=== PATIENT | male | born 1960 | race Caucasian/White ===

== ENCOUNTER 2020-10-16 09:05 | Observation (INO) | payer OTHER ==
[~2020-10-16] VITALS: Ht 177.8 cm; Wt 111.5 kg
--- NOTE | 2020-10-16 09:48 | ED Cardiac General ---
History of Present Illness General Chief Complaint: Chest Pain Stated Complaint: HIGH BP,CP, Nursing Triage Note: PT AMB TO RM 3 WITH COMPLAINT OF HTN, LEFT SIDE FACIAL NUMBNESS, AND CHEST PRESSURE. STATES STARTED AROUND 0600 THIS MORNING WHEN HE WOKE UP. STATES BP AT HOME WAS IN THE 220s. Source: patient Exam Limitations: no limitations NPO since: 6:30AM (JESSICA MATTSON STUDENT) History of Present Illness Date Seen by Provider: Oct 16, 2020 Time Seen by Provider: 09:20 Initial Comments Pt presents to ED via private conveyance with complaints of chest pain, L side facial numbness, SOB, high blood pressure. He states that this morning he woke up at around 6AM and was experiencing some SOB, chest pressure mid-upper sternum, denies radiation, rates it 6/10, denies prior similar symptoms. He also reports blurry vision bilaterally that he says has been improving since his symptoms began. He also had nausea and new onset R sided headache and L facial numbness. He had a stress test 2 years ago that he reports showed no evidence of ischemia, but was told about a stenotic valve. He reports history of HTN and recently changed medication from Lisinopril to Losartan. He has been having some nausea w/o vomiting. Last ate/drank 2 cups of coffee this morning when he woke up. Timing/Duration: 4-6 hours Severity: moderate Location: substernal (mid-upper sternum) Activities at Onset: sleep Prior CP/Workup: non-cardiac (he reports having reflux beginning about 1yr ago, does not take medication) Modifying Factors: improves with other (denies taking medication, denies alleviating/aggravating factors) NTG SL DATA INTEGRATION ARCHITECT: No ASA po DATA INTEGRATION ARCHITECT: No Associated Systoms: Chest Pain; No Fever/Chills; Headaches; No Loss of Appetite, No Malaise; Nausea/Vomiting (nausea w/o vomiting), Shortness of Air (JESSICA MATTSON STUDENT) Allergies and Home Medications Allergies Coded Allergies: No Known Drug Allergies (Unverified , 10/16/20) Home Medications Losartan/Hydrochlorothiazide 1 Each Tablet, 1 EACH PO DAILY, (Reported) Last Action: New Order Patient Home Medication List Home Medication List Reviewed: Yes (JESSICA MATTSON STUDENT) Review of Systems Review of Systems Constitutional: No chills, No dizziness, No fever EENTM: Blurred Vision (reports blurry vision this morning but improving since arrival) Respiratory: Denies Cough; Shortness of Air Cardiovascular: Chest Pain (substernal mid-upper sternum); Denies Edema, Denies Lightheadedness Gastrointestinal: Denies Abdomen Distended, Denies Abdominal Pain, Denies Constipated, Denies Diarrhea; Nausea; Denies Vomiting Genitourinary: Denies Burning, Denies Flank Pain, Denies Hematuria Musculoskeletal: back pain (chronic neck/back pain) Skin: No change in color, No change in hair/nails Psychiatric/Neurological: Headache (R sided 6/10), Numbness (mild loss of sensation L forehead); Denies Paresthesia (JESSICA MATTSON) All Other Systems Reviewed Negative Unless Noted: Yes (JESSICA MATTSON) Past Iagjqcc-Rbsbfr-Ssuhks Hx Patient Social History Tobacco Use?: Yes Tobacco type used: Cigarettes Smoking Status: Current Someday Smoker Smokeless Tobacco Frequency: Current Someday User Substance use?: No Alcohol Use?: Yes Alcohol Frequency: Once in a while Pt feels they are or have been: No (JESSICA MATTSON) Physical Exam Vital Signs Vital Signs - First Documented 10/16/20 09:10 Pulse 98 Resp 16 B/P (MAP) 225/126 (159) Pulse Ox 98 O2 Delivery Room Air (LEONARDO PARKS) Vital Signs Capillary Refill : Less Than 3 Seconds (JESSICA MATTSON) Height, Weight, BMI Height: '" Weight: lbs. oz. kg; 35.00 BMI Method: General Appearance: No Apparent Distress, WD/WN HEENT: PERRL/EOMI, TMs Normal, Pharynx Normal Neck: Full Range of Motion, Normal Inspection, Non Tender, Supple Respiratory: Chest Non Tender, Lungs Clear, Normal Breath Sounds, No Accessory Muscle Use, No Respiratory Distress Cardiovascular: Regular Rate, Rhythm, No Edema, Normal Peripheral Pulses, Systolic Murmur Gastrointestinal: Normal Bowel Sounds, Non Tender, Soft Rectal: Deferred Extremity: Normal Capillary Refill, Normal Inspection, Normal Range of Motion, Non Tender, No Pedal Edema Neurologic/Psychiatric: Alert, Oriented x3, Normal Mood/Affect, plastic molding operator II-XII Norm as Tested Skin: Normal Color, Warm/Dry Lymphatic: No Adenopathy (SRINIVASAN,JESSICA MED STUDENT) Progress/Results/Core Measures Results/Orders Lab Results Laboratory Tests Test 10/16/20 09:22 Range/Units White Blood Count 8.3 4.3-11.0 10^3/uL Red Blood Count 4.95 4.30-5.52 10^6/uL Hemoglobin 15.6 13.3-17.7 g/dL Hematocrit 48 40-54 % Mean Corpuscular Volume 96 80-99 fL Mean Corpuscular Hemoglobin 32 25-34 pg Mean Corpuscular Hemoglobin Concent 33 32-36 g/dL Red Cell Distribution Width 12.9 10.0-14.5 % Platelet Count 173 130-400 10^3/uL Mean Platelet Volume 11.0 9.0-12.2 fL Immature Granulocyte % (Auto) 0 % Neutrophils (%) (Auto) 66 42-75 % Lymphocytes (%) (Auto) 25 12-44 % Monocytes (%) (Auto) 7 0-12 % Eosinophils (%) (Auto) 1 0-10 % Basophils (%) (Auto) 1 0-10 % Neutrophils # (Auto) 5.5 1.8-7.8 10^3/uL Lymphocytes # (Auto) 2.1 1.0-4.0 10^3/uL Monocytes # (Auto) 0.6 0.0-1.0 10^3/uL Eosinophils # (Auto) 0.1 0.0-0.3 10^3/uL Basophils # (Auto) 0.0 0.0-0.1 10^3/uL Immature Granulocyte # (Auto) 0.0 0.0-0.1 10^3/uL Prothrombin Time 13.2 12.2-14.7 SEC INR Comment 1.0 0.8-1.4 Activated Partial Thromboplast Time 28 24-35 SEC Sodium Level 139 135-145 MMOL/L Potassium Level 4.0 3.6-5.0 MMOL/L Chloride Level 103 98-107 MMOL/L Carbon Dioxide Level 25 21-32 MMOL/L Anion Gap 11 5-14 MMOL/L Blood Urea Nitrogen 16 7-18 MG/DL Creatinine 1.12 0.60-1.30 MG/DL Estimat Glomerular Filtration Rate 67 BUN/Creatinine Ratio 14 Glucose Level 100 70-105 MG/DL Calcium Level 9.1 8.5-10.1 MG/DL Corrected Calcium 8.9 8.5-10.1 MG/DL Magnesium Level 2.1 1.6-2.4 MG/DL Total Bilirubin 0.8 0.1-1.0 MG/DL Aspartate Amino Transf (AST/SGOT) 21 5-34 U/L Alanine Aminotransferase (ALT/SGPT) 22 0-55 U/L Alkaline Phosphatase 69 40-136 U/L Myoglobin 64.2 10.0-92.0 NG/ML Troponin I < 0.028 <0.028 NG/ML Total Protein 7.8 6.4-8.2 GM/DL Albumin 4.3 3.2-4.5 GM/DL (LEONARDO PARKS) My Orders Orders - LEONARDO PARKS Continuous Ekg Monitoring (10/16/20 09:13) Ekg Tracing (10/16/20 09:13) Cbc With Automated Diff (10/16/20 09:54) Magnesium (10/16/20 09:54) Chest 1 View, Ap/Pa Only (10/16/20 09:54) Comprehensive Metabolic Panel (10/16/20 09:54) Myoglobin Serum (10/16/20 09:54) Protime With Inr (10/16/20 09:54) Partial Thromboplastin Time (10/16/20 09:54) O2 (10/16/20 09:54) Lipid Panel (10/17/20 06:00) Ed Iv/Invasive Line Start (10/16/20 09:54) Troponin I (10/16/20 09:54) Aspirin Chewable Tablet (Baby Aspirin Ch (10/16/20 10:00) Ct Head Wo-R/O Stroke (10/16/20 09:54) Nitroglycerin 0.4 Mg Btl 25's (Nitrostat (10/16/20 13:30) (LEONARDO PARKS) Medications Given in ED Current Medications Medications Dose Ordered Sig/Vin Route Start Time Stop Time Status Last Admin Dose Admin Aspirin 324 mg ONCE ONCE PO 10/16/20 10:00 10/16/20 10:01 DC 10/16/20 10:00 324 MG Nitroglycerin 0.4 mg NEEDED PRN SL 10/16/20 13:30 10/16/20 16:19 DC 10/16/20 13:35 0.4 MG (LEONARDO PARKS) Vital Signs/I&O 10/16/20 10/16/20 09:10 09:10 Pulse 98 Resp 16 B/P (MAP) 225/126 (159) Pulse Ox 98 O2 Delivery Room Air Room Air (LEONARDO PARKS) Blood Pressure Mean: 159 Progress Progress Note : Time: 13:14 Progress Note I attest that I saw this patient alongside the medical student and agree with his documented history, physical exam and review of systems except as otherwise noted. Patient's blood pressure dips down to 170/140 while he is resting but as we talk it goes up to 220/160. Plan to give him some nitroglycerin and if it does not correct his blood pressure we will try labetalol as his heart rates in the 90s. (LEONARDO PARKS) Initial ECG Impression Date: Oct 16, 2020 Initial ECG Impression Time: 09:17 Initial ECG Rate: 92 Initial ECG Rhythm: Normal Sinus Initial ECG Intervals: Normal Initial ECG Impression: Normal Initial ECG Comparisson: No Previous ECG Available Comment Normal sinus rhythm without clinically relevant ST elevation or depression. (LEONARDO PARKS) Diagnostic Imaging Diagonstic Imaging: CT Plain Films/CT/US/NM/MRI: head Comments [facility], [place] NAME: DIONNE WEBB [facility] REC#: [id number] PT STATUS: REG ER : 1960 PHYSICIAN: LEONARDO PARKS MD ADMIT DATE: 10/16/20/ER Draft Date of Exam:10/16/20 CT HEAD WO-R/O STROKE INDICATION: Hypertension. Dizziness. Shortness of air. TECHNIQUE: Routine non contrast-enhanced axial images were obtained from the skull base to the vertex. Auto Exposure Controls were utilized during the CT exam to meet ALARA standards for radiation dose reduction COMPARISON: None. FINDINGS: The ventricles and cortical sulci are age appropriate. There is no midline shift or mass-effect. No acute intra-axial hemorrhage is seen. There are no abnormal areas of increased or decreased density to suggest acute hemorrhage or edema. No extra-axial masses or collections are present. The bony calvarium is intact. The visualized paranasal sinuses show minimal scattered mucosal thickening. The mastoid air cells are clear. IMPRESSION: 1. No acute intracranial abnormality. No CT evidence of mass, acute infarct or intracranial hemorrhage. Results were called to Dr. Parks by Dr. Cuevas at 1030 hours on 10/16/2020. Dictated on workstation # [id number] Dict: 10/16/20 1021 Trans: 10/16/20 1033 [id number] Interpreted by: JULIA CUEVAS MD Electronically signed by: Reviewed: Reviewed by Me Diagonstic Imaging: Xray Plain Films/CT/US/NM/MRI: chest Comments [facility] [place], [place] NAME: DIONNE WEBB MED REC#: [id number] PT STATUS: REG ER : 1960 PHYSICIAN: LEONARDO PARKS MD ADMIT DATE: 10/16/20/ER Draft Date of Exam:10/16/20 CHEST 1 VIEW, AP/PA ONLY INDICATION: Chest pain COMPARISON: None. FINDINGS: Single frontal view of the chest demonstrates normal heart size and pulmonary vascularity. The lungs are well aerated and clear. No large pleural effusion or pneumothorax is seen. The visualized osseous structures show no acute abnormalities. IMPRESSION: 1. No acute cardiopulmonary process. Dictated on workstation # [id number] Dict: 10/16/20 1032 Trans: 10/16/20 1033 [id number] Interpreted by: JULIA CUEVAS MD Electronically signed by: Reviewed: Reviewed by Me (LEONARDO PARKS) Departure Communication (Admissions) Time/Spoke to Admitting Phy: 13:25 Discussed the case with Dr. Carson and she agrees with cardiology consult, med telemetry and labetalol as necessary. Time/Spoke to Consulting Phy: 13:20 Discussed the case with Dr. Barreto. He agrees with labetalol if nitroglycerin does not bring the blood pressure down significantly. He agrees to consult on the case. (LEONARDO PARKS) Impression Primary Impression: Malignant hypertension Additional Impressions: TIA (transient ischemic attack) Chest pain Qualified Codes: R07.1 - Chest pain on breathing ACS (acute coronary syndrome) Disposition: ADMITTED INPATIENT Condition: Stable Admissions Decision to Admit Reason: Admit from ER (General) Decision to Admit/Date: Oct 16, 2020 Time/Decision to Admit Time: 13:00 (LEONARDO PARKS) Departure-Patient Inst. Referrals: [facility] (PCP/Family) Primary Care Physician JESSICA MATTSON STUDENT Oct 16, 2020 09:48 LEONARDO PARKS Oct 16, 2020 13:20
[2020-10-16] MEDS ORDERED: ASPIRIN 81 MG CHEW (CHILDREN'S ASA) PO ONE (10:00)
[2020-10-16 10:05] LABS: BASOPHILS % (AUTO) 1 % (0-10); EOSINOPHILS # (AUTO) 0.1 10^3/uL (0.0-0.3); EOSINOPHILS % (AUTO) 1 % (0-10); HEMATOCRIT 48 % (40-54); HEMOGLOBIN 15.6 g/dL (13.3-17.7); LYMPHOCYTES # (AUTO) 2.1 10^3/uL (1.0-4.0); LYMPHOCYTES % (AUTO) 25 % (12-44); MEAN CORPUSCULAR HEMOGLOBIN 32 pg (25-34); MEAN CORPUSCULAR HGB CONC 33 g/dL (32-36); MEAN CORPUSCULAR VOLUME 96 fL (80-99); MONOCYTES # (AUTO) 0.6 10^3/uL (0.0-1.0); MONOCYTES % (AUTO) 7 % (0-12); NEUTROPHILS # (AUTO) 5.5 10^3/uL (1.8-7.8); NEUTROPHILS % (AUTO) 66 % (42-75); PLATELET COUNT 173 10^3/uL (130-400); WHITE BLOOD COUNT 8.3 10^3/uL (4.3-11.0)
[2020-10-16 10:12] LABS: ALBUMIN 4.3 GM/DL (3.2-4.5)
[2020-10-16 10:14] LABS: CALCIUM 9.1 MG/DL (8.5-10.1); PROTHROMBIN TIME PATIENT 13.2 SEC (12.2-14.7)
[2020-10-16 10:15] LABS: TOTAL PROTEIN 7.8 GM/DL (6.4-8.2)
[2020-10-16 10:17] LABS: BILIRUBIN,TOTAL 0.8 MG/DL (0.1-1.0)
[2020-10-16 10:19] LABS: CREATININE SERUM 1.12 MG/DL (0.60-1.30)
[2020-10-16 10:22] LABS: MAGNESIUM 2.1 MG/DL (1.6-2.4)
--- NOTE | 2020-10-16 10:34 | Diagnostic Imaging Report ---
INDICATION: Chest pain COMPARISON: None. FINDINGS: Single frontal view of the chest demonstrates normal heart size and pulmonary vascularity. The lungs are well aerated and clear. No large pleural effusion or pneumothorax is seen. The visualized osseous structures show no acute abnormalities. IMPRESSION: 1. No acute cardiopulmonary process. Dictated by: Dictated on workstation # [id number]
--- NOTE | 2020-10-16 10:34 | Diagnostic Imaging Report ---
INDICATION: Hypertension. Dizziness. Shortness of air. TECHNIQUE: Routine non contrast-enhanced axial images were obtained from the skull base to the vertex. Auto Exposure Controls were utilized during the CT exam to meet ALARA standards for radiation dose reduction COMPARISON: None. FINDINGS: The ventricles and cortical sulci are age appropriate. There is no midline shift or mass-effect. No acute intra-axial hemorrhage is seen. There are no abnormal areas of increased or decreased density to suggest acute hemorrhage or edema. No extra-axial masses or collections are present. The bony calvarium is intact. The visualized paranasal sinuses show minimal scattered mucosal thickening. The mastoid air cells are clear. IMPRESSION: 1. No acute intracranial abnormality. No CT evidence of mass, acute infarct or intracranial hemorrhage. Results were called to Dr. Parks by Dr. Cantrell at 1030 hours on 10/16/2020. Dictated by: Dictated on workstation # [id number]
[2020-10-16] MEDS ORDERED: NITROGLYCERIN 0.4 MG SL TABS BTL 25'S SL PRN (13:30)
[2020-10-16] MEDS ORDERED: LABETALOL HCL 20 MG/4 ML VIAL IV ONE (14:30)
[2020-10-16] MEDS ORDERED: ONDANSETRON 4 MG/2 ML (SDV) Z0FRAN IV PRN (16:30)
[2020-10-16] MEDS ORDERED: LABETALOL HCL 20 MG/4 ML VIAL IV PRN (16:30)
[2020-10-16] MEDS ORDERED: ACETAMINOPHEN 325 MG TABLET PO PRN ×2 (16:30)
[2020-10-16] MEDS ORDERED: CATHETER FLUSH 10 ML SYR IV PRN (16:30)
[2020-10-16] MEDS ORDERED: MILK OF MAGNESIA 400 MG/5 ML 30 ML UDC PO PRN (16:30)
--- NOTE | 2020-10-16 16:43 | Consultation-Cardiology ---
HPI-Cardiology Cardiology Consultation: Date of Consultation 10/16/2020 Date of Admission 10/16/2020 Attending Physician Lindsay Carson MD Admitting Physician [facility] Consulting Physician MICHELA ROSS JR, MD HPI: Time Seen by a Provider: 16:42 Chief Complaint: Reason for consultation: Chest pain. I had the pleasure of seeing Tito on the medical surgical unit this afternoon. He has had longstanding history of hypertension but no history of coronary artery disease or other cardiac problems. He was in his usual state of health until the past couple weeks when he noticed some intermittent chest tightness. This was in the center of his chest. This was mild at first. This might make him a little short of breath. He just thought this was acid reflux and did not seek medical attention. However, he has also been having elevated blood pressures at home. He ultimately became concerned and made an appointment to see his physician. Then this morning when he woke up he had more severe substernal chest tightness, again associated with shortness of breath. From wh at I can gather, he already had an appointment scheduled and went to see his family physician and was found to have markedly elevated blood pressure. He was then sent to the emergency room for further evaluation. In the emergency room he was found to be hypertensive. He was given 1 sublingual nitroglycerin and his chest discomfort improved. Since being here in the hospital the chest discomfort has essentially subsided. He also had some numbness in the left side of his face when he was at home. This has now also resolved. 1 or 2 years ago he had some similar chest discomfort while he was in [place]. He saw a network communications engineer in [place] and underwent an echocardiogram and stress test and he said everything checked out okay other than he was told his heart was enlarged. Last week he had also seen his primary provider and his antihypertensive medication was adjusted. He denies paroxysmal nocturnal dyspnea, orthopnea, palpitations, lightheadedness, syncope, or lower extremity edema. He did have significant peripheral edema in the past when he was taken a different blood pressure medication but this was changed by the network communications engineer in [place] 2 years ago and his edema all resolved. He smokes an occasional cigarette but not every day. He is on disability due to chronic low back pain. He does not know of any family history of cardiac disease. His father at a young age but from accidental . Review of Systems-Cardiology Review of Systems Other comments Review of 10 organ systems is as per the history of present illness, otherwise negative. All Other Systems Reviewed Negative Unless Noted: Yes BUU-Dxdjyn-Kbtvpu Hx Patient Social History Smoking Status: Current Someday Smoker Have you traveled recently?: No Alcohol Use?: Yes Pt feels they are or have been: No Tobacco type used: Cigarettes Past Medical History PMH As described under Assessment. Family Medical History Family Medical History: The patient does not know of any family history of premature coronary artery disease. Allergies and Home Medications Allergies Coded Allergies: No Known Drug Allergies (Unverified , 10/16/20) Patient Home Medication List Home Medication List Reviewed: Yes Exam Vital Signs Vital Signs Date Time Temp Pulse Resp B/P (MAP) Pulse Ox O2 Delivery O2 Flow Rate FiO2 10/16/20 15:08 95 Room Air 10/16/20 14:55 78 16 164/121 Physical Exam General: Alert. No acute distress. Well nourished and appears stated age.He is obese. Eye: Extraocular movements are intact. Conjunctivae are clear. There are no xanthelasma. HENT: Normocephalic. Atraumatic. Carotid pulsations 2/2 without bruits. Neck: Jugular venous pressure does not appear elevated. No thyromegaly appreciated. Respiratory: Lungs are clear to auscultation. Respirations are non-labored. Breath sounds are equal. Symmetrical chest wall expansion. Cardiovascular: Normal rate. Regular rhythm. 3/6 systolic ejection murmur. No gallop. Point of maximal impulse is not appear displaced. Good pulses equal in all extremities. No edema. Gastrointestinal: Soft. Normal bowel sounds. Skin: Skin turgor is normal. There is no pallor. Musculoskeletal: No kyphosis or scoliosis appreciated. Neurologic: Alert and oriented to person, place, time. Cranial nerves 3-12 appear grossly intact. The patient has good motor tone strength in the upper and lower extremities bilaterally. Psychiatric: Cooperative. Appropriate mood & affect. Labs Laboratory Tests Test 10/16/20 09:22 10/16/20 16:22 Range/Units White Blood Count 8.3 4.3-11.0 10^3/uL Red Blood Count 4.95 4.30-5.52 10^6/uL Hemoglobin 15.6 13.3-17.7 g/dL Hematocrit 48 40-54 % Mean Corpuscular Volume 96 80-99 fL Mean Corpuscular Hemoglobin 32 25-34 pg Mean Corpuscular Hemoglobin Concent 33 32-36 g/dL Red Cell Distribution Width 12.9 10.0-14.5 % Platelet Count 173 130-400 10^3/uL Mean Platelet Volume 11.0 9.0-12.2 fL Immature Granulocyte % (Auto) 0 % Neutrophils (%) (Auto) 66 42-75 % Lymphocytes (%) (Auto) 25 12-44 % Monocytes (%) (Auto) 7 0-12 % Eosinophils (%) (Auto) 1 0-10 % Basophils (%) (Auto) 1 0-10 % Neutrophils # (Auto) 5.5 1.8-7.8 10^3/uL Lymphocytes # (Auto) 2.1 1.0-4.0 10^3/uL Monocytes # (Auto) 0.6 0.0-1.0 10^3/uL Eosinophils # (Auto) 0.1 0.0-0.3 10^3/uL Basophils # (Auto) 0.0 0.0-0.1 10^3/uL Immature Granulocyte # (Auto) 0.0 0.0-0.1 10^3/uL Prothrombin Time 13.2 12.2-14.7 SEC INR Comment 1.0 0.8-1.4 Activated Partial Thromboplast Time 28 24-35 SEC Sodium Level 139 135-145 MMOL/L Potassium Level 4.0 3.6-5.0 MMOL/L Chloride Level 103 98-107 MMOL/L Carbon Dioxide Level 25 21-32 MMOL/L Anion Gap 11 5-14 MMOL/L Blood Urea Nitrogen 16 7-18 MG/DL Creatinine 1.12 0.60-1.30 MG/DL Estimat Glomerular Filtration Rate 67 BUN/Creatinine Ratio 14 Glucose Level 100 70-105 MG/DL Calcium Level 9.1 8.5-10.1 MG/DL Corrected Calcium 8.9 8.5-10.1 MG/DL Magnesium Level 2.1 1.6-2.4 MG/DL Total Bilirubin 0.8 0.1-1.0 MG/DL Aspartate Amino Transf (AST/SGOT) 21 5-34 U/L Alanine Aminotransferase (ALT/SGPT) 22 0-55 U/L Alkaline Phosphatase 69 40-136 U/L Myoglobin 64.2 10.0-92.0 NG/ML Troponin I < 0.028 <0.028 NG/ML Total Protein 7.8 6.4-8.2 GM/DL Albumin 4.3 3.2-4.5 GM/DL ECG Impression ECG Comment Sinus rhythm with lateral T wave inversion. Diagnosis/Problems Diagnosis/Problems (1) Chest pain Status: Acute Assessment & Plan: Exact etiology unclear. Despite several hours of chest discomfort, his first troponin level was negative. His electrocardiogram does not show any obvious ischemic changes. He was markedly hypertensive on admission. I did briefly review his echocardiogram at the bedside and it appears as though he could have hypertrophic cardiomyopathy versus hypertensive heart disease. Full report to follow. I concur that he should be admitted to telemetry with serial troponin levels. If he rules out for myocardial infarction, I will plan on a nuclear stress test tomorrow. I recommend low strength aspirin. Due to his marked hypertension, I will also add beta-veena. A lipid panel has been ordered. (2) Hypertensive emergency without congestive heart failure Assessment & Plan: His systolic blood pressure was over 220 in the emergency room in the setting of left-sided facial numbness and chest discomfort. Fortunately, his blood pressure is improved and his symptoms resolved after he received IV labetalol in the emergency room. He was on losartan and hydrochlorothiazide at home. I will restart his outpatient medications and also add beta-veena. (3) Abnormal ECG Assessment & Plan: His EKG shows nonspecific lateral T wave inversion. In light of the chest discomfort, I recommend a nuclear stress test as outlined above. (4) Aortic stenosis Assessment & Plan: His echocardiogram also shows mild aortic stenosis In addition to the left ventricular hypertrophy noted above. This should not be causing symptoms but will need to be followed in the long run. (5) Transient ischemic attack Assessment & Plan: He had left-sided facial numbness this morning. This has now resolved. His head CT did not show any acute abnormality. The hospitalist has ordered an MRI of the brain. (6) Cigarette smoker Assessment & Plan: Cigarette smoking cessation was strongly encouraged. The patient was counseled in this regard. Problem Qualifiers (1) Chest pain: Chest pain type: chest pain on breathing Qualified Codes: R07.1 - Chest pain on breathing MICHELA ROSS JR, MD Oct 16, 2020 16:43
[2020-10-16 16:53] VITALS: BP 180/119
[2020-10-16] MEDS ORDERED: REGADENOSON 0.4 MG/5 ML SYR (LEXISCAN) IV ONE (17:00)
[2020-10-16] MEDS ORDERED: LOSA1TAB26 PO (17:47)
[2020-10-16 19:24] VITALS: BP 172/111
[2020-10-16] MEDS: DOCUSATE SODIUM 100 MG (COLACE) CAP PO SCH (20:42)
[2020-10-17] VITALS (7 sets, daily range): BP systolic 111–170; BP diastolic 73–110
[2020-10-17 05:46] LABS: BASOPHILS % (AUTO) 1 % (0-10); EOSINOPHILS # (AUTO) 0.1 10^3/uL (0.0-0.3); EOSINOPHILS % (AUTO) 2 % (0-10); HEMATOCRIT 43 % (40-54); HEMOGLOBIN 13.9 g/dL (13.3-17.7); LYMPHOCYTES # (AUTO) 1.7 10^3/uL (1.0-4.0); LYMPHOCYTES % (AUTO) 26 % (12-44); MEAN CORPUSCULAR HEMOGLOBIN 31 pg (25-34); MEAN CORPUSCULAR HGB CONC 33 g/dL (32-36); MEAN CORPUSCULAR VOLUME 96 fL (80-99); MEAN PLATELET VOLUME 11.1 fL (9.0-12.2); MONOCYTES # (AUTO) 0.6 10^3/uL (0.0-1.0); MONOCYTES % (AUTO) 10 % (0-12); NEUTROPHILS # (AUTO) 3.9 10^3/uL (1.8-7.8); NEUTROPHILS % (AUTO) 61 % (42-75); PLATELET COUNT 150 10^3/uL (130-400); WHITE BLOOD COUNT 6.4 10^3/uL (4.3-11.0)
[2020-10-17 05:57] LABS: CALCIUM 8.6 MG/DL (8.5-10.1)
[2020-10-17 06:01] LABS: CREATININE SERUM 1.03 MG/DL (0.60-1.30)
[2020-10-17] MEDS ORDERED: ASPIRIN E.C. 325 MG (ECOTRIN) TABLET PO SCH (09:00)
[2020-10-17] MEDS ORDERED: LOSARTAN 100 MG (COZAAR) TABLET PO SCH (09:00)
[2020-10-17] MEDS ORDERED: ASPIRIN E.C. 81 MG (ECOTRIN) TAB PO SCH (09:00)
--- NOTE | 2020-10-17 09:10 | Diagnostic Imaging Report ---
PROCEDURE: MR imaging of the brain without contrast. TECHNIQUE: Multiplanar, multisequence MR imaging of the brain was performed without contrast. INDICATION: Left-sided facial numbness. Hypertension. Stroke-like symptoms. COMPARISON: CT head on 10/16/2020. Findings: No acute ischemia, mass, or hemorrhage. Scattered T2 hyperintense signal seen in the periventricular and subcortical white matter. The ventricles, cortical sulci, and basilar cisterns are symmetric and unremarkable. The sellar and suprasellar regions have a normal appearance. The brainstem and posterior fossa are unremarkable. Mucosal thickening is seen in the left maxillary sinus. The mastoid air cells demonstrate normal signal characteristics. The globes and orbits are symmetric and unremarkable. The scalp and calvarium have a normal appearance. Impression: 1. No acute ischemia, mass, or hemorrhage. 2. Scattered chronic microvascular disease in the periventricular and subcortical white matter. 2. Mild mucosal thickening in the left maxillary sinus. Dictated by: Dictated on workstation # [id number]
[2020-10-17] MEDS ORDERED: REGADENOSON 0.4 MG/5 ML SYR (LEXISCAN) IV ONE (09:36)
--- NOTE | 2020-10-17 09:43 | Cardiology Progress Note ---
Progress Note-Cardiology Events since last exam Date Seen by Provider: Oct 17, 2020 Time Seen by Provider: 09:38 Events since last exam I am seeing him for chest pain. He still has some chest tightness this morning. He feels short of breath due to sinus congestion, worse on the left. He denies palpitations, syncope, or ankle edema. I had him undergo a stress test earlier today and he had chest tightness at rest that did not change with exercise. Certain portions of this document may have been dictated utilizing voice recognition technology. Inherent to this technology, typographical and grammatical errors may exist. As much as I am diligent to identify and correct these mistakes, some errors may remain in the document. Vitals Last set of Vitals Signs Vital Signs 10/17/20 11:00 Temp 36.6 Pulse 66 Resp 20 B/P (MAP) 170/105 (126) Pulse Ox 98 O2 Delivery Room Air Labs Labs Laboratory Tests 10/17/20 05:10 Exam Vital Signs Vital Signs Date Time Temp Pulse Resp B/P (MAP) Pulse Ox O2 Delivery O2 Flow Rate FiO2 10/17/20 11:00 36.6 66 20 170/105 (126) 98 Room Air Physical Exam General: Alert. No acute distress. Eye: No xanthelasma. HENT: Normocephalic. Neck: Jugular venous pressure does not appear elevated. Respiratory: Lungs are clear to auscultation. Respirations are non-labored. Breath sounds are equal. Symmetrical chest wall expansion. Cardiovascular: Normal rate. Regular rhythm. 3/6 systolic ejection murmur. No gallop. No edema. Gastrointestinal: Soft. Normal bowel sounds. Skin: Warm. Dry. Neurologic: Alert and oriented to person, place, time. Cranial nerves 3-11 grossly intact. Psychiatric: Cooperative. Appropriate mood & affect. Labs Laboratory Tests Test 10/16/20 16:22 10/16/20 21:10 10/17/20 05:10 Range/Units Troponin I < 0.028 < 0.028 <0.028 NG/ML White Blood Count 6.4 4.3-11.0 10^3/uL Red Blood Count 4.42 4.30-5.52 10^6/uL Hemoglobin 13.9 13.3-17.7 g/dL Hematocrit 43 40-54 % Mean Corpuscular Volume 96 80-99 fL Mean Corpuscular Hemoglobin 31 25-34 pg Mean Corpuscular Hemoglobin Concent 33 32-36 g/dL Red Cell Distribution Width 12.9 10.0-14.5 % Platelet Count 150 130-400 10^3/uL Mean Platelet Volume 11.1 9.0-12.2 fL Immature Granulocyte % (Auto) 1 % Neutrophils (%) (Auto) 61 42-75 % Lymphocytes (%) (Auto) 26 12-44 % Monocytes (%) (Auto) 10 0-12 % Eosinophils (%) (Auto) 2 0-10 % Basophils (%) (Auto) 1 0-10 % Neutrophils # (Auto) 3.9 1.8-7.8 10^3/uL Lymphocytes # (Auto) 1.7 1.0-4.0 10^3/uL Monocytes # (Auto) 0.6 0.0-1.0 10^3/uL Eosinophils # (Auto) 0.1 0.0-0.3 10^3/uL Basophils # (Auto) 0.0 0.0-0.1 10^3/uL Immature Granulocyte # (Auto) 0.0 0.0-0.1 10^3/uL Sodium Level 138 135-145 MMOL/L Potassium Level 4.0 3.6-5.0 MMOL/L Chloride Level 103 98-107 MMOL/L Carbon Dioxide Level 24 21-32 MMOL/L Anion Gap 11 5-14 MMOL/L Blood Urea Nitrogen 18 7-18 MG/DL Creatinine 1.03 0.60-1.30 MG/DL Estimat Glomerular Filtration Rate 73 BUN/Creatinine Ratio 17 Glucose Level 101 70-105 MG/DL Calcium Level 8.6 8.5-10.1 MG/DL Triglycerides Level 116 <150 MG/DL Cholesterol Level 158 < 200 MG/DL LDL Cholesterol Direct 109 1-129 MG/DL VLDL Cholesterol 23 5-40 MG/DL HDL Cholesterol 36 L 40-60 MG/DL Diagnosis/Problems Diagnosis/Problems (1) Chest pain Status: Acute Assessment & Plan: Exact etiology unclear. Despite almost constant chest discomfort, his troponin levels were negative. This could be non-cardiac chest pain, possibly due to esophageal reflux. I will start him on a proton pump inh ibitor. His nuclear stress test showed normal myocardial perfusion with a normal ejection fraction. His chest discomfort could also be related to hypertensive heart disease. I have added beta-veena to his medical regimen. From a cardiac standpoint, the patient can be discharged home. I have asked his nurse to arrange for a follow-up visit with me in the office in 1 month. I would also suggest he take aspirin 81 mg once a day for primary prevention of myocardial infarction and stroke. (2) Hypertensive emergency without congestive heart failure Assessment & Plan: His systolic blood pressure was over 220 in the emergency room in the setting of left-sided facial numbness and chest discomfort. He also had a hypertensive blood pressure response to exercise during the stress test. I restarted his outpatient medications and also added a beta-veena. I recommend he be discharged with this combination of medications. He will need to get a follow-up with his primary provider within the next couple of weeks to recheck a blood pressure. (3) Left ventricular hypertrophy due to hypertensive disease Assessment & Plan: He has severe left ventricle hypertrophy noted on his echocardiogram. It is not entirely clear whether this could be hypertensive heart disease or possibly hypertrophic cardiomyopathy without obstruction. I will plan to follow this longitudinally after discharge. If this is left ventricular hypertrophy related to hypertension, this may regress with adequate treatment of his hypertension. (4) Abnormal ECG Assessment & Plan: His EKG shows nonspecific lateral T wave inversion. However, his stress test was normal. I suspect the T wave abnormalities on the electrocardiogram are related to left ventricular hypertrophy. (5) Aortic stenosis Assessment & Plan: His echocardiogram also showed mild aortic stenosis in addition to the left ventricular hypertrophy noted above. This should not be causing symptoms but will need to be followed longitudinally. There is no indication for intervention at this time. (6) Transient ischemic attack Assessment & Plan: He had left-sided facial numbness prior to admission. This resolved and has not recurred. His head CT and MRI of the brain did not show any acute abnormality. However, he does have small vessel ischemic changes on the MRI of the brain. As such, good control of his risk factors is of paramount importance. (7) Cigarette smoker Assessment & Plan: Cigarette smoking cessation was strongly encouraged. The patient was counseled in this regard. Problem Qualifiers (1) Chest pain: Chest pain type: chest pain on breathing Qualified Codes: R07.1 - Chest pain on breathing MICHELA ROSS JR, MD Oct 17, 2020 09:43
[2020-10-17] MEDS ORDERED: PANTOPRAZOLE 40 MG (PROTONIX) TAB PO ONE (10:00)
[2020-10-17] MEDS: DOCUSATE SODIUM 100 MG (COLACE) CAP PO SCH (11:14)
[2020-10-17] MEDS ORDERED: BACL10TA PO (12:10)
[2020-10-17] MEDS ORDERED: MULT200T12 PO (12:10)
[2020-10-17] MEDS ORDERED: ZINC50TA51 PO (12:10)
[2020-10-17] MEDS ORDERED: MELO15TA39 PO (12:10)
--- NOTE | 2020-10-17 13:11 | NUCLEAR STRESS TEST ---
TREADMILL NUCLEAR STRESS TEST Date of procedure: 10/17/2020. Primary care provider: [facility]. Admitting physician: Lindsay Carson MD. INDICATION: Chest pain and abnormal ECG. BASELINE ELECTROCARDIOGRAM: Sinus rhythm with left atrial abnormality and left ventricular hypertrophy with repolarization abnormality. STRESS TEST PROCEDURE: The patient was exercised for a total of 9 minutes and 22 seconds of the standard [place] protocol achieving a maximum MET level of 10.3. The resting heart rate was 63 bpm and the peak heart rate was 138 bpm, which represents 86% of the maximum predicted heart rate. The resting blood pressure was 196/114 mmHg and the peak blood pressure was 221/120 mmHg. This represents a normal heart rate and a hypertensive blood pressure response to exercise with resting hypertension. The test was stopped due to fatigue. The patient had chest tightness at rest that did not change during the test. There were isolated premature ventricular complexes during the test. The stress electrocardiogram was indeterminate due to the baseline abnormalities. The patient exhibited excellent exercise capacity for age. NUCLEAR PROCEDURE: The patient was administered 10.2 mCi of intravenous technetium 99m Tetrofosmin at rest for the rest images. The patient was subsequently administered 29 mCi of intravenous technetium 99 M Tetrofosmin at p eak stress for the stress images. Following an appropriate wait after each injection, imaging was obtained. The images were subsequently processed and reformatted in the usual views. Gated imaging was obtained. The image quality was adequate but with a fair amount of gastrointestinal attenuation artifact. CT attenuation correction was used as a adjunct to standard imaging. Both the corrected and uncorrected images were reviewed for interpretation. NUCLEAR RESULTS: There was normal myocardial perfusion in all segments without evidence of infarction or ischemia. There was normal left ventricular chamber size with an end-diastolic volume of 96 mL and an end-systolic volume of 31 mL. There was no evidence of transient ischemic dilatation. The TID ratio was 0.99. There was normal wall motion in all segments with a calculated ejection fraction of 67%. IMPRESSION: 1. Normal heart rate and a hypertensive blood pressure response to exercise with resting hypertension. 2. There was no change in the patient's chest discomfort which he had at rest and continued during the test. 3. There were isolated premature ventricular complexes during stress that resolved in recovery. 4. The stress electrocardiogram was indeterminate due to the baseline abnormalities. 5. The patient exhibited excellent exercise capacity for age at 9 minutes and 22 seconds of the May[place] protocol. 6. There was normal myocardial perfusion in all segments without evidence of infarction or ischemia. 7. There was normal wall motion in all segments with a calculated ejection fraction of 67%. Certain portions of this document may have been dictated utilizing voice ashley gnition technology. Inherent to this technology, typographical and grammatical errors may exist. As much as I am diligent to identify and correct these mistakes, some errors may remain in the document. MICHELA ROSS JR, MD Oct 17, 2020 13:10
[2020-10-17] MEDS ORDERED: ATOR80TA76 PO (16:46)
[2020-10-17] MEDS ORDERED: LOSA100T57 PO (16:46)
[2020-10-17] MEDS ORDERED: HYDR25TA4 PO (16:46)
[2020-10-17] MEDS ORDERED: ASPI-1238 PO (16:46)
[2020-10-17] MEDS ORDERED: PANT40TA52 PO (16:46)
[2020-10-17] MEDS ORDERED: CARV12.53 PO (16:46)
--- NOTE | 2020-10-17 16:47 | Short Stay Summary ---
Discharge Summary Hospital Course Problems/Dx: (1) Chest pain Status: Acute Assessment & Plan: Pt had stress test with normal perfusion and EF. Started on PPI per Cardiology and beta veena added to his medications. Qualifiers: Qualified Codes: R07.1 - Chest pain on breathing (2) Hypertensive emergency without congestive heart failure Assessment & Plan: Per pt report, blood pressure has rarely been below 160/100 and has been difficult to control for years. Systolic BP over 200 on admit. Increased hydrochlorothiazide to 25 mg and added beta veena. Likely will need further additions outpatient and he does not recall if he has had work-up for secondary hypertension, so would suggest this outpatient. (3) Left ventricular hypertrophy due to hypertensive disease (4) Aortic stenosis Assessment & Plan: His echocardiogram also showed mild aortic stenosis in addition to the left ventricular hypertrophy noted above. Per Cardiology there is no indication for intervention at this time. (5) Transient ischemic attack Assessment & Plan: He had left-sided facial numbness prior to admission. This resolved and has not recurred. His head CT and MRI of the brain did not show any acute abnormality, but did show small vessel ischemic changes. (6) Cigarette smoker Final Diagnosis: See problem list Hospital Course Date of Admission: Oct 16, 2020 at 13:30 Admission Diagnosis : Family Physician/Provider: [facility] Date of Discharge: 10/17/20 Discharge Diagnosis: See problem list Hospital Course: See problem list Labs and Pending Lab Test: Laboratory Tests 10/16/20 21:10: Troponin I < 0.028 10/17/20 05:10: White Blood Count 6.4, Red Blood Count 4.42, Hemoglobin 13.9, Hematocrit 43, Mean Corpuscular Volume 96, Mean Corpuscular Hemoglobin 31, Mean Corpuscular Hemoglobin Concent 33, Red Cell Distribution Width 12.9, Platelet Count 150, Mean Platelet Volume 11.1, Immature Granulocyte % (Auto) 1, Neutrophils (%) (Auto) 61, Lymphocytes (%) (Auto) 26, Monocytes (%) (Auto) 10, Eosinophils (%) (Auto) 2, Basophils (%) (Auto) 1, Neutrophils # (Auto) 3.9, Lymphocytes # (Auto) 1.7, Monocytes # (Auto) 0.6, Eosinophils # (Auto) 0.1, Basophils # (Auto) 0.0, Immature Granulocyte # (Auto) 0.0, Sodium Level 138, Potassium Level 4.0, Chlor elier Level 103, Carbon Dioxide Level 24, Anion Gap 11, Blood Urea Nitrogen 18, Creatinine 1.03, Estimat Glomerular Filtration Rate 73, BUN/Creatinine Ratio 17, Glucose Level 101, Calcium Level 8.6, Triglycerides Level 116, Cholesterol Level 158, LDL Cholesterol Direct 109, VLDL Cholesterol 23, HDL Cholesterol 36L Home Meds Active Pantoprazole Sodium 40 Mg Tablet.dr 40 Mg PO DAILY Hydrochlorothiazide 25 Mg Tablet 25 Mg PO DAILY Aspirin EC (Aspirin) 81 Mg Tablet.dr 81 Mg PO DAILY Losartan Potassium 100 Mg Tablet 100 Mg PO DAILY Carvedilol 12.5 Mg Tablet 12.5 Mg PO BID Atorvastatin Calcium 80 Mg Tablet 80 Mg PO HS Reported Zinc (Zinc Amino Acid Chelate) 50 Mg Tablet 50 Mg PO DAILY Multivitamin Gummies (Multivit-Minerals/Folic Acid) 200 Mcg Tab.chew 200 Mcg PO DAILY Baclofen 10 Mg Tablet 10 Mg PO Q8H PRN Meloxicam 15 Mg Tablet 15 Mg PO DAILY PRN Assessment/Pt Instructions Follow up with Shukri Nevarez at [facility] on 10/19 at 2pm Follow up with Cardiology as directed. Discharge Instructions Discharge Diet: Low Sodium Diet Discharge Physical Examination General Appearance: Alert, No Acute Distress HEENT: PERRLA, EOMI Respiratory: Clear to Auscultation Cardiovascular: Regular Rate, Other (4/6 systolic murmur) Abdominal: Normal Bowel Sounds, Soft Extremities: No Edema Neuro: Normal Speech, Strength at 5/5 X4 Ext, Cranial Nerves 3-12 NL Psych/Mental Status: Mental Status NL, Mood NL Allergies: Coded Allergies: No Known Drug Allergies (Unverified , 10/16/20) Copy Copies To 1: Shukri Nevarez APRN Discharge Summary Date of Admission Oct 16, 2020 at 13:30 Date of Discharge Oct 17, 2020 Discharge Date: Oct 17, 2020 Consults/Procedures Consulations Cardiology Discharge Diagnosis See problem list Clinical Quality Measures AMI/AHF: ASA po Prior to arrival: MICHELLE Holly MD Oct 17, 2020 16:47
[2020-10-18] MEDS ORDERED: PANTOPRAZOLE 40 MG (PROTONIX) TAB PO SCH (09:00)
== END 2020-10-17 18:59 | disposition home or self-care (01) ==
LOC: ER 09:08 → 4TH 13:30
PROVIDERS: ADMIT Family Medicine; ATTEND Family Medicine
DX: R07.1 Chest pain on breathing (principal); I11.9 Hypertensive heart disease without heart failure; I35.0 Nonrheumatic aortic (valve) stenosis; G45.9 Transient cerebral ischemic attack, unspecified; F17.210 Nicotine dependence, cigarettes, uncomplicated; Z79.899 Other long term (current) drug therapy
CPT/HCPCS: 70450; 70551; 71045; 78452; 80048; 80053; 80061; 83735; 83874; 84484; 85025 ×2; 85610; 85730; 93005; 93017; 93306; 96374; 99284; A9502; G0378; 36415